=== PATIENT | female | born 1945 | race American Indian/Alaskan Native ===

== ENCOUNTER 2017-10-03 18:36 | Emergency (ER) | payer MEDICARE ==
[2017-10-03 22:19] LABS: Basophils # (Auto) 0.1 K/mm3 (0.0-0.1); Basophils % (Auto) 0.8 % (0.0-1.8); Eosinophils # (Auto) 0.2 K/mm3 (0.0-0.4); Eosinophils % (Auto) 1.7 % (0.0-4.3); Hematocrit 41.8 % (30.3-42.9); Hemoglobin 13.9 gm/dl (10.1-14.3); Lymphocytes % (Auto) 33.2 % (13.4-35.0); Mean Corpuscular HGB Conc 33 % (30-34); Mean Corpuscular Hemoglobin 29 pg (28-32); Mean Corpuscular Volume 87 fl (79-97); Monocytes # (Auto) 0.6 K/mm3 (0.0-0.8); Monocytes % (Auto) 7.1 % (0.0-7.3); Platelet Count 344 K/mm3 (140-440); Red Blood Count 4.83 M/mm3 (3.65-5.03); Red Cell Distribution Width 14.8 % (13.2-15.2)
[2017-10-03 22:43] LABS: Alanine Aminotransferase 16 units/L (7-56); Albumin 4.3 g/dL (3.9-5); BUN/Creatinine Ratio 26; Blood Urea Nitrogen 13 mg/dL (7-17); Calcium 9.5 mg/dL (8.4-10.2); Hemolysis Index 28; Lipase 34 units/L (13-60)
[2017-10-04] MEDS ORDERED: NORCO 5/325 PO ONE (06:30)
--- NOTE | 2017-10-04 06:43 | Emergency Department Report ---
ED Abdominal Pain HPI - General Chief Complaint: Abdominal Pain Stated Complaint: ABDOMINAL PAIN Time Seen by Provider: 10/04/17 06:13 Source: patient Mode of arrival: Ambulatory Limitations: No Limitations - History of Present Illness Initial Comments: Mrs. Moreno is a 72-year-old female with history of insulin-dependent diabetes and COPD who has had multiple abdominal surgeries including hysterectomy appendectomy cholecystectomy 2 hernia surgeries. She has had several months of right upper quadrant abdominal pain. Worse over the last 2 weeks. She has cramping pain. "Feels like a knot" Worse with eating. Copious diarrhea with mucus. 's concern for Crohn's disease. Symptoms are worse at night. MD Complaint: abdominal pain -: month(s) Location: RUQ Radiation: none Migration to: no migration Severity: moderate Severity scale (0 -10): 7 Quality: cramping, other ("feels like a knot") Consistency: intermittent Improves With: nothing Worsens With: eating Associated Symptoms: diarrhea - Related Data Home Medications Medication Instructions Recorded Confirmed Last Taken Insulin Glargine [Lantus VIAL] 15 unit SUB-Q QHS 12/09/15 05/02/17 2 Weeks Ago ~04/18/17 Previous Rx's Medication Instructions Recorded Last Taken Type Insulin Aspart [NovoLOG 100 5 units SUB-Q TID #60 units 12/18/15 04/28/17 Rx UNITS/ML VIAL] Insulin Glargine [Lantus VIAL] 10 units SUB-Q QHS #30 units 12/18/15 1 Week Ago Rx ~04/25/17 Warfarin [Coumadin] 2.5 mg PO QDAY #30 tablet 12/18/15 04/28/17 Rx 11.5 mg ALBUTEROL Inhaler [ProAir HFA 2 puff IH QID PRN #1 can 05/10/17 Unknown Rx Inhaler] Arformoterol Nebu [Brovana Nebu] 15 mcg IH Q12HRT #60 ml 05/10/17 Unknown Rx Codeine Phosphate/Guaifenesin 5 ml PO QID PRN #1 bottle 05/10/17 Unknown Rx [Guaifen-Codeine 100-10 mg/5 ml] Diabetic Supplies,Miscell [Enlite 1 each MC BID #1 miscell 05/10/17 Unknown Rx Serter] Levofloxacin [Levaquin TAB] 500 mg PO Q24H #5 tablet 05/10/17 Unknown Rx Prednisone [predniSONE 10 mg 10 mg PO .TAPER #1 tab.ds.pk 05/10/17 Unknown Rx (6-Day Pack, 21 Tabs)] amLODIPine [Norvasc] 10 mg PO DAILY #30 tablet 05/10/17 Unknown Rx Allergies Allergy/AdvReac Type Severity Reaction Status Date / Time aspirin Allergy Rash Verified 10/28/15 16:10 sumatriptan [From Imitrex] Allergy Rash Verified 10/28/15 16:11 vancomycin Allergy Rash Verified 10/28/15 16:12 ibuprofen [From Motrin] AdvReac Itching Verified 10/28/15 16:13 sumatriptan succinate AdvReac Rash Verified 04/24/14 07:59 [From Imitrex] zolpidem [From Ambien] AdvReac Unknown Verified 04/29/17 21:55 ED Review of Systems ROS: Stated complaint: ABDOMINAL PAIN Other details as noted in HPI Comment: All other systems reviewed and negative Constitutional: denies: fever, malaise Respiratory: orthopnea. denies: cough Cardiovascular: denies: chest pain, palpitations ED Past Medical Hx - Past Medical History Previous Medical History?: Yes Hx Hypertension: Yes Hx Heart Attack/AMI: No Hx Congestive Heart Failure: No Hx Diabetes: Yes Hx Deep Vein Thrombosis: No Hx Pulmonary Embolism: No Hx Liver Disease: No Hx Arthritis: No Hx Asthma: Yes Hx COPD: Yes Hx Tuberculosis: No Hx HIV: No - Surgical History Past Surgical History?: Yes Hx Coronary Stent: No Hx Pacemaker: No Hx Internal Defibrillator: No Hx Cholecystectomy: Yes Additional Surgical History: Hernia, shoulder, knee, stent placement. - Social History Smoking Status: Former Smoker - Medications Home Medications: Home Medications Medication Instructions Recorded Confirmed Last Taken Type Insulin Glargine [Lantus VIAL] 15 unit SUB-Q QHS 12/09/15 05/02/17 2 Weeks Ago History ~04/18/17 Insulin Aspart [NovoLOG 100 5 units SUB-Q TID #60 units 12/18/15 05/02/17 Rx UNITS/ML VIAL] Insulin Glargine [Lantus VIAL] 10 units SUB-Q QHS #30 units 12/18/15 05/02/17 1 Week Ago Rx ~04/25/17 Warfarin [Coumadin] 2.5 mg PO QDAY #30 tablet 12/18/15 05/02/17 04/28/17 Rx 11.5 mg ALBUTEROL Inhaler [ProAir HFA 2 puff IH QID PRN #1 can 05/10/17 Unknown Rx Inhaler] Arformoterol Nebu [Brovana Nebu] 15 mcg IH Q12HRT #60 ml 05/10/17 Unknown Rx Codeine Phosphate/Guaifenesin 5 ml PO QID PRN #1 bottle 05/10/17 Unknown Rx [Guaifen-Codeine 100-10 mg/5 ml] Diabetic Supplies,Miscell [Enlite 1 each MC BID #1 miscell 05/10/17 Unknown Rx Serter] Levofloxacin [Levaquin TAB] 500 mg PO Q24H #5 tablet 05/10/17 Unknown Rx Prednisone [predniSONE 10 mg 10 mg PO .TAPER #1 tab.ds.pk 05/10/17 Unknown Rx (6-Day Pack, 21 Tabs)] amLODIPine [Norvasc] 10 mg PO DAILY #30 tablet 05/10/17 Unknown Rx ED Physical Exam - General Limitations: No Limitations General appearance: alert, in no apparent distress - Head Head exam: Present: atraumatic, normocephalic - Eye Eye exam: Present: normal appearance - ENT ENT exam: Present: mucous membranes moist - Neck Neck exam: Present: normal inspection - Respiratory Respiratory exam: Present: normal lung sounds bilaterally. Absent: respiratory distress, wheezes, rales, rhonchi - Cardiovascular Cardiovascular Exam: Present: regular rate, normal rhythm, normal heart sounds. Absent: systolic murmur, diastolic murmur, rubs, gallop - GI/Abdominal GI/Abdominal exam: Present: soft, normal bowel sounds, other (long central vertical surgical incisional scar). Absent: distended, tenderness, guarding, rebound - Extremities Exam Extremities exam: Present: normal inspection - Back Exam Back exam: Present: normal inspection - Neurological Exam Neurological exam: Present: alert, oriented X3 - Psychiatric Psychiatric exam: Present: normal affect, normal mood - Skin Skin exam: Present: warm, dry, intact, normal color. Absent: rash ED Course Vital Signs 10/03/17 10/04/17 10/04/17 19:00 02:00 06:27 Temperature 98.4 F Pulse Rate 82 67 Respiratory 96 H 17 Rate Blood Pressure 119/70 Blood Pressure 138/51 [Left] O2 Sat by Pulse 96 95 99 Oximetry ED Medical Decision Making - Lab Data Result diagrams: 10/03/17 22:05 10/03/17 22:05 - Medical Decision Making Differential diagnoses includes small bowel obstruction, pain due to adhesions, tumor, IBS, gastroparesis, hernia No evidence of small bowel obstruction. She'll need outpatient follow-up with her PCP. recommended tylenol PRN for pain Critical care attestation.: If time is entered above; I have spent that time in minutes in the direct care of this critically ill patient, excluding procedure time. ED Disposition Clinical Impression: Abdominal pain Disposition: DC-01 TO HOME OR SELFCARE Is pt being admited?: No Does the pt Need Aspirin: No Condition: Stable Instructions: Abdominal Pain (ED) Additional Instructions: Please see your doctor this week. You need to see a GI specialist. Time of Disposition: 10:33
[2017-10-04] MEDS ORDERED: NACL ONE (07:03)
--- NOTE | 2017-10-04 08:04 | Cat Scan Report ---
CT ABDOMEN PELVIS WITHOUT CONTRAST: HISTORY: Right upper quadrant abdominal pain. COMPARISON: 04/24/14. TECHNIQUE: Helical CT in 1.25mm intervals without IV contrast. Sagittal and coronal reconstructions. FINDINGS: Lung bases: Normal heart size. There is mild segmental atelectasis or scarring in both lower lobes. Liver: The liver is mildly enlarged with a few scattered liver cysts. No surface nodularity or obvious mass on noncontrast CT. Biliary system: Cholecystectomy. No biliary dilatation is appreciated. Pancreas: Normal. Spleen: Normal. Kidneys/ureters/bladder: Normal. Adrenal glands: Normal. Aorta: Mild diffuse aortic calcifications. Left common iliac stent is in place. Intestines: Unremarkable given no oral contrast was administered. Mild sigmoid diverticulosis is noted. Appendix: Not identified. Pelvic viscera: Hysterectomy is suspected. No adnexal cyst or mass. Ascites: None. Adenopathy: None. Musculoskeletal: Moderate to severe rectal lumbar spondylosis. No fracture or suspicious bony lesion. IMPRESSION: No acute abdominal process is identified. Chronic findings as outlined above.
[2017-10-04] MEDS ORDERED: MORPHINE IM ONE (08:59)
[2017-10-04] MEDS ORDERED: ZOFRAN ODT PO ONE (08:59)
[2017-10-04] MEDS ORDERED: ALUM-MAG HYDROX-SIMETH 200-200-20MG/5ML PO ONE (09:01)
[2017-10-04 11:51] VITALS: BP 139/63
== END 2017-10-04 11:00 | disposition home or self-care (01) ==
LOC: ED 18:36
DX: R10.11 Right upper quadrant pain (principal); R19.7 Diarrhea, unspecified; I10 Essential (primary) hypertension; E11.9 Type 2 diabetes mellitus without complications; J44.9 Chronic obstructive pulmonary disease, unspecified; Z90.49 Acquired absence of other specified parts of digestive tract; Z87.891 Personal history of nicotine dependence; Z95.818 Presence of other cardiac implants and grafts; Z88.8 Allergy status to other drugs, medicaments and biological substances; Z88.6 Allergy status to analgesic agent; Z88.1 Allergy status to other antibiotic agents
CPT/HCPCS: 36415; 74176; 80053; 83690; 85025; 96372; 99284; J2270; Q0162

== ENCOUNTER 2019-08-03 12:26 | Emergency (ER) | payer MEDICARE | END 2019-08-03 13:30 | disposition left against medical advice (07) | LOC: ED 12:26 | DX: R51 Headache (principal); Z53.21 Procedure and treatment not carried out due to patient leaving prior to being seen by health care provider ==

== ENCOUNTER 2019-11-13 09:19 | Emergency (ER) | payer MEDICARE ==
--- NOTE | 2019-11-13 09:53 | Emergency Department Report ---
- General Chief Complaint: Upper Respiratory Infection Stated Complaint: COUGH/MERLYN Time Seen by Provider: 11/13/19 09:41 Source: patient, EMS Mode of arrival: Stretcher Limitations: No Limitations - History of Present Illness Initial Comments: 74-year-old female with history of COPD, on 2 L O2 at home, presents to ED for cough x3 days. Patient states she normally has chronic cough due to COPD, but states it has been worse over the last 3 days, triggering her COPD and shortness of breath. Patient states that she has not had to increase her oxygen requirement. Patient reports cough is productive of white sputum. She reports sharp chest pain in the center of her chest associated with the cough. Patient denies diaphoresis, nausea or vomiting. Patient denies fever, body aches, vomiting or diarrhea, loss of smell or taste, sick contacts, exposure to anyone that has tested positive for COVID-19. Patient was given Solu-Medrol and albuterol nebulizer by EMS. MD Complaint: cough -: days(s) (3) Severity: moderate Quality: sharp Consistency: constant Improves With: nothing Worsens With: nothing Associated Symptoms: cough, chest pain (with cough) Treatments Prior to Arrival: other (albuterol nebs, solumedrol) - Related Data Home Medications Medication Instructions Recorded Confirmed Last Taken Insulin Glargine [Lantus VIAL] 15 unit SUB-Q QHS 12/09/15 05/02/17 2 Weeks Ago ~04/18/17 Previous Rx's Medication Instructions Recorded Last Taken Type Insulin Aspart (Nf) [NovoLOG 100 5 units SUB-Q TID #60 units 12/18/15 04/28/17 Rx UNITS/ML VIAL] Insulin Glargine [Lantus VIAL] 10 units SUB-Q QHS #30 units 12/18/15 1 Week Ago Rx ~04/25/17 Warfarin [Coumadin] 2.5 mg PO QDAY #30 tablet 12/18/15 04/28/17 Rx 11.5 mg Albuterol INH(or & Nicu Only) 2 puff IH QID PRN #1 can 05/10/17 Unknown Rx [ProAir HFA Inhaler] Arformoterol Nebu [Brovana Nebu] 15 mcg IH Q12HRT #60 ml 05/10/17 Unknown Rx Codeine Phosphate/Guaifenesin 5 ml PO QID PRN #1 bottle 05/10/17 Unknown Rx [Guaifen-Codeine 100-10 mg/5 ml] Diabetic Supplies,Miscell [Enlite 1 each MC BID #1 miscell 05/10/17 Unknown Rx Serter] Prednisone [predniSONE 10 mg 10 mg PO .TAPER #1 tab.ds.pk 05/10/17 Unknown Rx (6-Day Pack, 21 Tabs)] amLODIPine 10 mg PO DAILY #30 tablet 05/10/17 Unknown Rx levoFLOXacin [Levaquin TAB] 500 mg PO Q24H #5 tablet 05/10/17 Unknown Rx traMADoL [Ultram] 50 mg PO Q6HR PRN #14 tablet 05/05/18 Unknown Rx Albuterol Sulfate [Proventil Hfa] 2 puff IH Q4HR PRN #1 hfa.aer.ad 11/13/19 Unknown Rx Benzonatate [Tessalon Perles] 100 mg PO Q8HR PRN #20 capsule 11/13/19 Unknown Rx predniSONE [Deltasone] 50 mg PO QDAY #5 tab 11/13/19 Unknown Rx Allergies Allergy/AdvReac Type Severity Reaction Status Date / Time aspirin Allergy Rash Verified 08/03/19 12:28 sumatriptan [From Imitrex] Allergy Rash Verified 08/03/19 12:28 vancomycin Allergy Rash Verified 08/03/19 12:28 ibuprofen [From Motrin] AdvReac Itching Verified 08/03/19 12:28 sumatriptan succinate AdvReac Rash Verified 08/03/19 12:28 [From Imitrex] zolpidem [From Ambien] AdvReac Unknown Verified 08/03/19 12:28 ED Review of Systems ROS: Stated complaint: COUGH/MERLYN Other details as noted in HPI Comment: All other systems reviewed and negative Constitutional: denies: chills, fever Respiratory: cough, shortness of breath, wheezing Cardiovascular: chest pain (with cough) Gastrointestinal: denies: vomiting, constipation ED Past Medical Hx - Past Medical History Previous Medical History?: Yes Hx Hypertension: Yes Hx Heart Attack/AMI: No Hx Congestive Heart Failure: No Hx Diabetes: Yes Hx Deep Vein Thrombosis: No Hx Pulmonary Embolism: No Hx Liver Disease: No Hx Arthritis: No Hx Asthma: Yes Hx COPD: Yes Hx Tuberculosis: No Hx HIV: No - Surgical History Hx Coronary Stent: No Hx Pacemaker: No Hx Internal Defibrillator: No Hx Cholecystectomy: Yes Additional Surgical History: Hernia, shoulder, knee, stent placement. - Social History Smoking Status: Unknown if ever smoked Substance Use Type: None - Medications Home Medications: Home Medications Medication Instructions Recorded Confirmed Last Taken Type Insulin Glargine [Lantus VIAL] 15 unit SUB-Q QHS 12/09/15 05/02/17 2 Weeks Ago History ~04/18/17 Insulin Aspart (Nf) [NovoLOG 100 5 units SUB-Q TID #60 units 12/18/15 05/02/17 04/28/17 Rx UNITS/ML VIAL] Insulin Glargine [Lantus VIAL] 10 units SUB-Q QHS #30 units 12/18/15 05/02/17 1 Week Ago Rx ~04/25/17 Warfarin [Coumadin] 2.5 mg PO QDAY #30 tablet 12/18/15 05/02/17 04/28/17 Rx 11.5 mg Albuterol INH(or & Nicu Only) 2 puff IH QID PRN #1 can 05/10/17 Unknown Rx [ProAir HFA Inhaler] Arformoterol Nebu [Brovana Nebu] 15 mcg IH Q12HRT #60 ml 05/10/17 Unknown Rx Codeine Phosphate/Guaifenesin 5 ml PO QID PRN #1 bottle 05/10/17 Unknown Rx [Guaifen-Codeine 100-10 mg/5 ml] Diabetic Supplies,Miscell [Enlite 1 each MC BID #1 miscell 05/10/17 Unknown Rx Serter] Prednisone [predniSONE 10 mg 10 mg PO .TAPER #1 tab.ds.pk 05/10/17 Unknown Rx (6-Day Pack, 21 Tabs)] amLODIPine 10 mg PO DAILY #30 tablet 05/10/17 Unknown Rx levoFLOXacin [Levaquin TAB] 500 mg PO Q24H #5 tablet 05/10/17 Unknown Rx traMADoL [Ultram] 50 mg PO Q6HR PRN #14 tablet 05/05/18 Unknown Rx Albuterol Sulfate [Proventil Hfa] 2 puff IH Q4HR PRN #1 hfa.aer.ad 11/13/19 Unknown Rx Benzonatate [Tessalon Perles] 100 mg PO Q8HR PRN #20 capsule 11/13/19 Unknown Rx predniSONE [Deltasone] 50 mg PO QDAY #5 tab 11/13/19 Unknown Rx ED Physical Exam - General Limitations: No Limitations General appearance: alert, in no apparent distress - Head Head exam: Present: atraumatic, normocephalic - Eye Eye exam: Present: normal appearance, EOMI - ENT ENT exam: Present: mucous membranes moist - Neck Neck exam: Present: normal inspection - Respiratory Respiratory exam: Present: wheezes (faint). Absent: respiratory distress - Cardiovascular Cardiovascular Exam: Present: regular rate, normal rhythm - GI/Abdominal GI/Abdominal exam: Present: soft. Absent: distended, tenderness - Extremities Exam Extremities exam: Present: normal inspection - Neurological Exam Neurological exam: Present: alert, oriented X3 - Psychiatric Psychiatric exam: Present: normal affect, normal mood - Skin Skin exam: Present: warm, dry, intact, normal color ED Course Vital Signs 11/13/19 11/13/19 11/13/19 09:30 09:34 10:00 Temperature Pulse Rate 97 H 83 Respiratory 18 29 H 22 Rate Blood Pressure 137/69 141/62 O2 Sat by Pulse 99 97 95 Oximetry 11/13/19 11/13/19 10:30 10:52 Temperature 98.6 F Pulse Rate 83 60 Respiratory 35 H Rate Blood Pressure 123/63 O2 Sat by Pulse 97 Oximetry ED Medical Decision Making - Lab Data Result diagrams: 11/13/19 10:48 11/13/19 09:55 - EKG Data -: EKG Interpreted by [facility] EKG shows normal: sinus rhythm, axis, intervals, QRS complexes, ST-T waves Rate: normal - EKG Data Interpretation: no acute changes - Radiology Data Radiology results: report reviewed, image reviewed - Medical Decision Making - low suspicion for COVID infection given symptoms and exam findings - O2 normal; pt afebrile - CXR negative - pt feeling much better at this time; feels ready for discharge home - outpt f/u advised, return precautions given - Differential Diagnosis COPD exacerbation, pneumonia, pulm edema Critical care attestation.: If time is entered above; I have spent that time in minutes in the direct care of this critically ill patient, excluding procedure time. ED Disposition Clinical Impression: COPD exacerbation Disposition: DC-01 TO HOME OR SELFCARE Is pt being admited?: No Condition: Stable Instructions: Chronic Bronchitis (ED) Prescriptions: predniSONE [Deltasone] 50 mg PO QDAY #5 tab Albuterol Sulfate [Proventil Hfa] 2 puff IH Q4HR PRN #1 hfa.aer.ad PRN Reason: Wheezing Benzonatate [Tessalon Perles] 100 mg PO Q8HR PRN #20 capsule PRN Reason: Cough Referrals: PRIMARY CARE, [Primary Care Provider] - 3-5 Days [facility] [Provider Group] - 3-5 Days Time of Disposition: 11:19
--- NOTE | 2019-11-13 10:03 | XRay Report ---
CHEST 1 VIEW 11/13/2019 8:57 AM INDICATION / CLINICAL INFORMATION: Chest Pain. COMPARISON: Chest x-ray on 05/04/2017. FINDINGS: SUPPORT DEVICES: None. HEART / MEDIASTINUM: Normal heart size. Atherosclerosis in the thoracic aorta. LUNGS / PLEURA: No acute findings. Stable mild linear scarring in the left midlung. No pneumothorax. ADDITIONAL FINDINGS: No significant additional findings. IMPRESSION: 1. No acute findings. Signer Name: Christiano Howard MD Signed: 11/13/2019 9:59 AM Workstation Name: [id number]
[2019-11-13 10:37] LABS: BUN/Creatinine Ratio 32; Blood Urea Nitrogen 19 mg/dL (7-17); Calcium 9.7 mg/dL (8.4-10.2); Hemolysis Index 23
[2019-11-13 11:02] LABS: Basophils % (Auto) 0.5 % (0.0-1.8); Eosinophils # (Auto) 0.2 K/mm3 (0.0-0.4); Hematocrit 37.1 % (30.3-42.9); Hemoglobin 12.2 gm/dl (10.1-14.3); Lymphocytes # (Auto) 1.7 K/mm3 (1.2-5.4); Lymphocytes % (Auto) 19.3 % (13.4-35.0); Mean Corpuscular HGB Conc 33 % (30-34); Mean Corpuscular Volume 92 fl (79-97); Monocytes # (Auto) 0.3 K/mm3 (0.0-0.8); Monocytes % (Auto) 3.4 % (0.0-7.3); Platelet Count 303 K/mm3 (140-440); Red Blood Count 4.05 M/mm3 (3.65-5.03); Red Cell Distribution Width 14.5 % (13.2-15.2)
[2019-11-14 13:19] VITALS: BP 123/63
== END 2019-11-13 11:42 | disposition home or self-care (01) ==
LOC: ED 09:19
DX: J44.1 Chronic obstructive pulmonary disease with (acute) exacerbation (principal); I10 Essential (primary) hypertension; E11.9 Type 2 diabetes mellitus without complications; Z98.890 Other specified postprocedural states; Z79.82 Long term (current) use of aspirin; Z79.1 Long term (current) use of non-steroidal anti-inflammatories (NSAID); Z79.899 Other long term (current) drug therapy; Z88.6 Allergy status to analgesic agent; Z88.8 Allergy status to other drugs, medicaments and biological substances
CPT/HCPCS: 36415; 71045; 80048; 84484; 85025; 93005

== ENCOUNTER 2021-09-29 17:23 | Emergency (ER) | payer MEDICARE ==
[2021-09-29] MEDS ORDERED: ACETAMINOPHEN 325 MG TAB PO ONE (18:13)
[2021-09-29] MEDS ORDERED: ALBUTEROL 2.5 MG/3 ML NEBU IH ONE (18:13)
--- NOTE | 2021-09-29 18:15 | Emergency Department Report ---
ED General Adult HPI - General Chief complaint: Dyspnea/Respdistress Stated complaint: CHEST PAIN/COUGH PUI?: No Time Seen by Provider: 09/29/21 18:00 Source: patient, RN notes reviewed, old records reviewed Mode of arrival: Ambulatory Limitations: No Limitations - History of Present Illness Initial comments: The patient is a 76-year-old female. She presents to the ER today with a complaint of 1 week of chest wall pain associated with cough, malaise. She also has body aches. She is COVID-19 vaccinated. She also reports a history of left lower extremity DVT, and reportedly takes Coumadin. She reports the DVT is a provoked DVT, which came from being in a hospital 7 years ago. She reports this is her only lifetime DVT. For unclear reasons, she is still on anticoagulation. She has taken gabapentin at home for pain, but otherwise, has not taken pain medication. She currently denies headache, neck pain, vomiting, diaphoresis and new/different exertional shortness of breath. Denies travel, surgery, immobilization, leg pain or leg swelling. Reports compliance with medicines. Saw her outpatient mock up builder at [place], who recently prescribed a [employer] as well as steroids. She also takes albuterol at home as needed. She has not taken Tylenol or Motrin for pain. She reports intolerance to NSAIDs secondary to GI upset. -: days(s) Location: chest Severity scale (0 -10): 10 Quality: aching Consistency: constant Improves with: rest Worsens with: other (Coughing, movement, palpation) - Related Data Home Medications Medication Instructions Recorded Confirmed Last Taken Insulin Glargine [Lantus VIAL] 15 unit SUB-Q QHS 12/09/15 05/02/17 2 Weeks Ago ~04/18/17 Previous Rx's Medication Instructions Recorded Last Taken Type Insulin Aspart (Nf) [NovoLOG 100 5 units SUB-Q TID #60 units 12/18/15 04/28/17 Rx UNITS/ML VIAL] Insulin Glargine [Lantus VIAL] 10 units SUB-Q QHS #30 units 12/18/15 1 Week Ago Rx ~04/25/17 Warfarin [Coumadin] 2.5 mg PO QDAY #30 tablet 12/18/15 04/28/17 Rx 11.5 mg Albuterol Mdi (or & Nicu Only) 2 puff IH QID PRN #1 can 05/10/17 Unknown Rx [ProAir HFA Inhaler] Arformoterol Nebu [Brovana Nebu] 15 mcg IH Q12HRT #60 ml 05/10/17 Unknown Rx Diabetic Supplies,Miscell [Enlite 1 each MC BID #1 miscell 05/10/17 Unknown Rx Serter] Prednisone [predniSONE 10 mg 10 mg PO .TAPER #1 tab.ds.pk 05/10/17 Unknown Rx (6-Day Pack, 21 Tabs)] amLODIPine 10 mg PO DAILY #30 tablet 05/10/17 Unknown Rx levoFLOXacin [Levaquin TAB] 500 mg PO Q24H #5 tablet 05/10/17 Unknown Rx Albuterol Sulfate [Proventil Hfa] 2 puff IH Q4HR PRN #1 hfa.aer.ad 11/13/19 Unknown Rx Benzonatate [Tessalon Perles] 100 mg PO Q8HR PRN #20 capsule 11/13/19 Unknown Rx predniSONE [Deltasone] 50 mg PO QDAY #5 tab 11/13/19 Unknown Rx Acetaminophen [Non-Aspirin Extra 500 mg PO Q6HR PRN #30 tablet 09/29/21 Unknown Rx Strength] Albuterol Sulfate [Albuterol 0.63% 0.63 mg IH Q4HR PRN #2 ml 09/29/21 Unknown Rx NEBS] Albuterol Sulfate [Proair 90 mcg IH Q4HR PRN #2 aer.pow.ba 09/29/21 Unknown Rx Respiclick] Ipratropium (Nf) [Atrovent] 2 puff IH Q6HR PRN #1 inha 09/29/21 Unknown Rx Allergies Allergy/AdvReac Type Severity Reaction Status Date / Time aspirin Allergy Rash Verified 08/03/19 12:28 sumatriptan [From Imitrex] Allergy Rash Verified 08/03/19 12:28 vancomycin Allergy Rash Verified 08/03/19 12:28 ibuprofen [From Motrin] AdvReac Itching Verified 08/03/19 12:28 sumatriptan succinate AdvReac Rash Verified 08/03/19 12:28 [From Imitrex] zolpidem [From Ambien] AdvReac Unknown Verified 08/03/19 12:28 ED Review of Systems ROS: Stated complaint: CHEST PAIN/COUGH Other details as noted in HPI Constitutional: malaise. denies: fever ENT: congestion Respiratory: cough Cardiovascular: chest pain Gastrointestinal: denies: abdominal pain Musculoskeletal: arthralgia, myalgia Neurological: denies: weakness Hematological/Lymphatic: denies: easy bleeding ED Past Medical Hx - Past Medical History Hx Hypertension: Yes Hx Heart Attack/AMI: No Hx Congestive Heart Failure: No Hx Diabetes: Yes Hx Deep Vein Thrombosis: No Hx Pulmonary Embolism: No Hx Liver Disease: No Hx Arthritis: Yes Hx Asthma: Yes Hx COPD: Yes Hx Tuberculosis: No Hx HIV: No - Surgical History Hx Coronary Stent: No Hx Pacemaker: No Hx Internal Defibrillator: No Hx Cholecystectomy: Yes Additional Surgical History: Hernia, shoulder, knee, stent placement. - Social History Smoking Status: Unknown if ever smoked Substance Use Type: None - Medications Home Medications: Home Medications Medication Instructions Recorded Confirmed Last Taken Type Insulin Glargine [Lantus VIAL] 15 unit SUB-Q QHS 12/09/15 05/02/17 2 Weeks Ago History ~04/18/17 Insulin Aspart (Nf) [NovoLOG 100 5 units SUB-Q TID #60 units 12/18/15 05/02/17 04/28/17 Rx UNITS/ML VIAL] Insulin Glargine [Lantus VIAL] 10 units SUB-Q QHS #30 units 12/18/15 05/02/17 1 Week Ago Rx ~04/25/17 Warfarin [Coumadin] 2.5 mg PO QDAY #30 tablet 12/18/15 05/02/17 04/28/17 Rx 11.5 mg Albuterol Mdi (or & Nicu Only) 2 puff IH QID PRN #1 can 05/10/17 Unknown Rx [ProAir HFA Inhaler] Arformoterol Nebu [Brovana Nebu] 15 mcg IH Q12HRT #60 ml 05/10/17 Unknown Rx Diabetic Supplies,Miscell [Enlite 1 each MC BID #1 miscell 05/10/17 Unknown Rx Serter] Prednisone [predniSONE 10 mg 10 mg PO .TAPER #1 tab.ds.pk 05/10/17 Unknown Rx (6-Day Pack, 21 Tabs)] amLODIPine 10 mg PO DAILY #30 tablet 05/10/17 Unknown Rx levoFLOXacin [Levaquin TAB] 500 mg PO Q24H #5 tablet 05/10/17 Unknown Rx Albuterol Sulfate [Proventil Hfa] 2 puff IH Q4HR PRN #1 hfa.aer.ad 11/13/19 Unknown Rx Benzonatate [Tessalon Perles] 100 mg PO Q8HR PRN #20 capsule 11/13/19 Unknown Rx predniSONE [Deltasone] 50 mg PO QDAY #5 tab 11/13/19 Unknown Rx Acetaminophen [Non-Aspirin Extra 500 mg PO Q6HR PRN #30 tablet 09/29/21 Unknown Rx Strength] Albuterol Sulfate [Albuterol 0.63% 0.63 mg IH Q4HR PRN #2 ml 09/29/21 Unknown Rx NEBS] Albuterol Sulfate [Proair 90 mcg IH Q4HR PRN #2 aer.pow.ba 09/29/21 Unknown Rx Respiclick] Ipratropium (Nf) [Atrovent] 2 puff IH Q6HR PRN #1 inha 09/29/21 Unknown Rx ED Physical Exam - General Limitations: No Limitations General appearance: alert, in no apparent distress - Head Head exam: Present: atraumatic, normocephalic - Eye Eye exam: Present: normal appearance, EOMI. Absent: nystagmus - ENT ENT exam: Present: normal exam, normal orophraynx, mucous membranes moist, normal external ear exam - Neck Neck exam: Present: normal inspection, full ROM. Absent: tenderness, meningismus - Respiratory Respiratory exam: Present: normal lung sounds bilaterally, chest wall tenderness, other (Chaperoned by sales and marketing associate Cristela). Absent: respiratory distress, wheezes, rales, rhonchi, stridor - Cardiovascular Cardiovascular Exam: Present: regular rate, normal rhythm, normal heart sounds. Absent: bradycardia, tachycardia, irregular rhythm, systolic murmur, diastolic murmur, rubs, gallop - GI/Abdominal GI/Abdominal exam: Present: soft. Absent: distended, tenderness, guarding, rebound, rigid, pulsatile mass - Extremities Exam Extremities exam: Present: normal inspection, full ROM, other (2+ pulses noted in the bilateral upper and lower extremities. There is no palpable cord. negative Homans sign. Muscular compartments are soft. The pelvis is stable.). Absent: pedal edema, calf tenderness - Back Exam Back exam: Present: normal inspection. Absent: tenderness, CVA tenderness (R), CVA tenderness (L), paraspinal tenderness, vertebral tenderness - Neurological Exam Neurological exam: Present: alert, oriented X3, other (No facial droop. Tongue midline. Extraocular movements intact bilaterally. Facial sensation intact to light touch in V1, V2, V3 distribution bilaterally. 5 and a 5 strength in 4 extremities. Sensation intact to light touch in 4 extremities.). Absent: motor sensory deficit - Psychiatric Psychiatric exam: Present: anxious - Skin Skin exam: Present: warm, dry, intact, normal color. Absent: rash ED Course Vital Signs 09/29/21 09/29/21 17:25 18:43 Temperature 98.7 F Pulse Rate 89 Pulse Rate [ 80 Anterior Bilateral Throughout] Respiratory 22 Rate Respiratory 20 Rate [Anterior Bilateral Throughout] Blood Pressure 159/67 [Right] O2 Sat by Pulse 97 Oximetry - Reevaluation(s) Reevaluation #1: 09/29/21 19:34 Differential diagnosis, including the not limited to: Bronchitis, costochondritis, pulmonary embolism, coronary artery disease, pneumonia Assessment and plan: 76 elderly female, who is not currently tachycardic, tachypneic or hypoxic, with 1 week of cough and chest wall pain, likely costochondritis with bronchitis. Chest x-ray clear. Lung sounds unremarkable. Troponin negative x1, symptoms present for 1 week. As per the [employer] clinical policy, myocardial infarction is ruled out with 1 set of troponin/cardiac enzymes. Patient endorsed to myself that she takes Coumadin/warfarin. Her INR is subtherapeutic. Albuterol and Tylenol ordered. D-dimer ordered. Reassess after initial data points. Patient's advanced age and cardiovascular risk factor profile are reviewed and appreciated. However, given unchanged EKG, reproducible chest wall pain, negative troponin x1, and overall clinical history, suspect bronchitis with superimposed costochondritis, rather than atypical presentation of acute cor onary syndrome. 09/29/21 20:05 Patient is reassessed. She feels improved. Troponin negative. D-dimer negative. INR reviewed and appreciated. Given that patient has one lifetime DVT 7 years ago, provoked, hospitalization, it might be reasonable to discontinue her Coumadin. I advised the patient to closely follow-up with her outpatient primary care doctor or mock up builder, to make that determination. Patient advised as to her test results, and she endorsed understanding. She endorsed improvement in her symptoms and readiness for discharge. Extensive discussion had with patient and regarding natural history of bronchitis and costochondritis. They articulated understanding. All questions answered. Return precautions are reviewed. ED Medical Decision Making - Lab Data Result diagrams: 09/29/21 18:20 09/29/21 18:20 Vital Signs 09/29/21 09/29/21 17:25 18:43 Temperature 98.7 F Pulse Rate 89 Pulse Rate [ 80 Anterior Bilateral Throughout] Respiratory 22 Rate Respiratory 20 Rate [Anterior Bilateral Throughout] Blood Pressure 159/67 [Right] O2 Sat by Pulse 97 Oximetry Lab Results 09/29/21 09/29/21 Range/Units 18:20 18:20 WBC 8.2 (4.5-11.0) K/mm3 RBC 4.63 (3.65-5.03) M/mm3 Hgb 13.1 (10.1-14.3) gm/dl Hct 41.1 (30.3-42.9) % MCV 89 (79-97) fl MCH 28 (28-32) pg MCHC 32 (30-34) % RDW 16.9 H (13.2-15.2) % Plt Count 349 (140-440) K/mm3 PT 12.0 L (12.2-14.9) Sec. INR 0.81 L (0.87-1.13) Lab Results 09/29/21 09/29/21 09/29/21 Range/Units 18:20 18:20 18:20 WBC 8.2 (4.5-11.0) K/mm3 RBC 4.63 (3.65-5.03) M/mm3 Hgb 13.1 (10.1-14.3) gm/dl Hct 41.1 (30.3-42.9) % MCV 89 (79-97) fl MCH 28 (28-32) pg MCHC 32 (30-34) % RDW 16.9 H (13.2-15.2) % Plt Count 349 (140-440) K/mm3 PT 12.0 L (12.2-14.9) Sec. INR 0.81 L (0.87-1.13) Sodium 142 (137-145) mmol/L Potassium 4.2 (3.6-5.0) mmol/L Chloride 104.2 (98-107) mmol/L Carbon Dioxide 22 (22-30) mmol/L Anion Gap 20 mmol/L BUN 15 (7-17) mg/dL Glucose 334 H (65-100) mg/dL Calcium 10.0 (8.4-10.2) mg/dL Magnesium 2.10 (1.7-2.3) mg/dL Total Creatine Kinase 171 H (30-135) units/L Troponin T < 0.010 (0.00-0.029) ng/mL - EKG Data -: EKG Interpreted by Me EKG shows normal: sinus rhythm Rate: normal - EKG Data 09/29/21 19:34 The EKG is interpreted at 17: 39 Sinus rhythm, 90 bpm. Normal axis, normal P wave axis, QTC 4 4 8 ms. Motion artifact. Abnormal EKG. Not a STEMI. Unchanged from prior EKG from November 2019 - Radiology Data Radiology results: pending, report reviewed, image reviewed CHEST PA AND LATERAL VIEWS INDICATION: chest wall pain w cough. COMPARISON: 04/28/2017 FINDINGS: Support devices: None. Heart: Within normal limits. Lungs/Pleura: There is mild scarring within the bases. IMPRESSION: 1. No acute findings. Signer Name: Jong Wren MD Signed: 09/29/2021 5:38 PM Workstation Name: [id number] Critical care attestation.: If time is entered above; I have spent that time in minutes in the direct care of this critically ill patient, excluding procedure time. ED Disposition Clinical Impression: Chest wall pain, Bronchitis Disposition: HOME / SELF CARE / HOMELESS Is pt being admited?: No Does the pt Need Aspirin: No Condition: Good Instructions: Chronic Bronchitis (ED), Costochondritis, Chronic Bronchitis, Adult Additional Instructions: As we discussed, patient likely has bronchitis, with superimposed costochondritis. Symptoms of bronchitis may last for a few days, weeks, or even months. Discontinue tobacco consumption, and smoking. Take the breathing medication as needed, and acetaminophen for pain as needed. Use the good Rx affordable prescription card to assist with affordable prescriptions. Recommend follow-up with your primary care doctor or mock up builder within the next 5 to 7 days for repeat checkup and evaluation. Patient was found to have a subtherap eutic INR/Coumadin level. As patient reported that she has a history of provoked DVT 7 years ago, and has not had a DVT since then, it may be reasonable to discontinue Coumadin/anticoagulation. Recommend very close follow-up with your outpatient primary care doctor or mock up builder to further discuss this. Recommend follow-up within the next 5 to 7 days. Please continue current outpatient medications otherwise. For the patient's convenience, local primary care or pulmonology have been liste d that she may follow-up with Referrals: BRAYDEN BUCHANAN MD [Staff Physician] - 3-5 Days DOTTY CELESTIN MD [Staff Physician] - 3-5 Days Forms: Work/School Release Form(ED)
--- NOTE | 2021-09-29 18:43 | XRay Report ---
CHEST PA AND LATERAL VIEWS INDICATION: chest wall pain w cough. COMPARISON: 04/28/2017 FINDINGS: Support devices: None. Heart: Within normal limits. Lungs/Pleura: There is mild scarring within the bases. IMPRESSION: 1. No acute findings. Signer Name: Jong Wren MD Signed: 09/29/2021 6:38 PM Workstation Name: [id number]
[2021-09-29 19:03] LABS: Hematocrit 41.1 % (30.3-42.9); Hemoglobin 13.1 gm/dl (10.1-14.3); Mean Corpuscular HGB Conc 32 % (30-34); Mean Corpuscular Volume 89 fl (79-97); Platelet Count 349 K/mm3 (140-440); Red Blood Count 4.63 M/mm3 (3.65-5.03); Red Cell Distribution Width 16.9 % (13.2-15.2)
[2021-09-29 19:09] LABS: INR 0.81 (0.87-1.13)
[2021-09-29 19:33] LABS: Blood Urea Nitrogen 15 mg/dL (7-17); Hemolysis Index 7
[2021-09-29 19:41] LABS: BUN/Creatinine Ratio 25
[2021-09-29 20:37] VITALS: BP 142/76
--- NOTE | 2021-10-01 14:18 | Electrocardiograph Report ---
[facility] Test Date: 2021-09-29 Test Time: 17:39:07 Pat Name: SERA BARNES Department: Room: Gender: F Research Executive: REENA : 1945 Requested By: JULIETTE JAMES Order Number: [id number] Reading MD: Suzanne Daigle Measurements Intervals [place] Rate: 90 P: 8 SD: 124 QRS: 44 QRSD: 82 T: 63 QT: 366 QTc: 448 Interpretive Statements Sinus rhythm No previous ECG available for comparison Electronically Signed On 10-01-2021 14:18:17 EDT by Suzanne Daigle
== END 2021-09-29 20:37 | disposition home or self-care (01) ==
LOC: ED 17:23
DX: R07.9 Chest pain, unspecified (principal); J40 Bronchitis, not specified as acute or chronic; Z88.6 Allergy status to analgesic agent; Z88.1 Allergy status to other antibiotic agents; Z88.8 Allergy status to other drugs, medicaments and biological substances; I10 Essential (primary) hypertension; E11.9 Type 2 diabetes mellitus without complications
CPT/HCPCS: 36415; 71046; 80048; 82550; 83735; 84484; 85027; 85379; 85610; 93005; 94640; 94644; 99284

== ENCOUNTER 2021-10-24 11:03 | Emergency (ER) | payer MEDICARE ==
[2021-10-24] MEDS ORDERED: traMADol 50 MG TAB PO ONE (11:33)
--- NOTE | 2021-10-24 12:30 | Cat Scan Report ---
CT head/brain wo con INDICATION: head injury. TECHNIQUE: All CT scans at this location are performed using CT dose reduction for ALARA by means of automated e xposure control. COMPARISON: None available. FINDINGS: There is no evidence of hemorrhage, hydrocephalus, brain edema, or mass effect/mass lesion. There is overall normal brain formation and brain volume for the patient's age. Ventricular and cisternal/sulc al size is normal for age. The included paranasal sinuses and mastoid air cells are clear. The orbits appear unremarkable. IMPRESSION: 1. No acute intracranial abnormality. Signer Name: Christiano Howard MD Signed: 10/24/2021 12:20 PM Workstation Name: [id number]
--- NOTE | 2021-10-24 12:31 | Cat Scan Report ---
CT MAXILLOFACIAL WITHOUT CONTRAST INDICATION: fall. Facial pain TECHNIQUE: All CT scans at this location are performed using CT dose reduction for ALARA by means of automated e xposure control. COMPARISON: None available. FINDINGS: FACIAL BONES: No fracture or other significant abnormality. PARANASAL SINUSES: No significant abnormality. ORBITS: No significant abnormality. VISUALIZED INTRACRANIAL STRUCTURES: No significant abnormality. ADDITIONAL FINDINGS: None. IMPRESSION: 1. No acute maxillofacial fracture or subluxation. Signer Name: Christiano Howard MD Signed: 10/24/2021 12:23 PM Workstation Name: [id number]
--- NOTE | 2021-10-24 12:39 | Cat Scan Report ---
CT ABDOMEN AND PELVIS WITHOUT CONTRAST INDICATION: fall, abdominal pain. TECHNIQUE: Axial CT images were obtained through the abdomen and pelvis without IV contrast. All CT scans at [facility] location are performed using CT dose reduction for ALARA by means of automated exposure control. COMPARISON: None available. FINDINGS: LOWER CHEST: No significant abnormality. Linear bibasilar scarring/atelectasis. LIVER: No significant abnormality. GALLBLADDER: Surgically absent. BILE DUCTS: Dilated measuring 1.4 cm but tapering distally. No common bile duct stone PANCREAS: No significant abnormality. SPLEEN: No significant abnormality. ADRENALS: No significant abnormality. RIGHT KIDNEY and URETER: No significant abnormality. LEFT KIDNEY and URETER: No significant abnormality. STOMACH and SMALL BOWEL: No significant abnormality. COLON: No significant abnormality. APPENDIX: Normal PERITONEUM: No free fluid. No free air. No fluid collection. LYMPH NODES: No significant adenopathy. AORTA and ARTERIES: Moderate vascular calcifications nonaneurysmal aorta. IVC and VEINS: Left common and external iliac venous stent with large venous collaterals within the l ower pelvis. URINARY BLADDER: No significant abnormality. REPRODUCTIVE ORGANS: No significant abnormality. ADDITIONAL FINDINGS: None. SKELETAL SYSTEM: Spinal fusion hardware extending from L4 into sacrum and both iliac bones. IMPRESSION: 1. No significant abnormality. Line 2. Biliary ductal dilatation status post cholecystectomy. 3. Left iliac vein stent. Signer Name: Laron Mock MD Signed: 10/24/2021 12:34 PM Workstation Name: [id number]
--- NOTE | 2021-10-24 12:48 | Emergency Department Report ---
ED Fall HPI - General Chief Complaint: Pain General Stated Complaint: LEFT SIDE/NOSE PAIN Time Seen by Provider: 10/24/21 11:29 Source: patient Mode of arrival: Ambulatory - History of Present Illness Initial Comments: 76-year-old black female with a past medical history of hypertension, diabetes, COPD, and DVT with stent and currently on OAC presents to the emergency department for evaluation of left lower quadrant and nose pain. She states that 3 days ago she fell while getting off the toilet and hit her face and has had pain to her nose and right area since then. 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 She denies fever, nausea, vomiting, chest pain, shortness of breath, vision changes, and dizziness. MD Complaint: fall -: Gradual, days(s) (3) Fall From: other (I will try to get off toilet) When Fall Occurred: 4-6 hours EXTERMINATOR Fall Witnessed: no Place Fall Occurred: home Loss of Consciousness: none Prolonged Down Time?: no Symptoms Prior to Fall: none Location: face Severity: severe Quality: aching Associated Symptoms: headache, abdominal pain. denies: neck pain, numbness, weakness, chest paint, shortness of breath, hematuria, unable to walk, lightheaded, vertigo, confusion - Related Data Home Medications Medication Instructions Recorded Confirmed Last Taken Insulin Glargine [Lantus VIAL] 15 unit SUB-Q QHS 12/09/15 05/02/17 2 Weeks Ago ~04/18/17 Previous Rx's Medication Instructions Recorded Last Taken Type Insulin Aspart (Nf) [NovoLOG 100 5 units SUB-Q TID #60 units 12/18/15 04/28/17 Rx UNITS/ML VIAL] Insulin Glargine [Lantus VIAL] 10 units SUB-Q QHS #30 units 12/18/15 1 Week Ago Rx ~04/25/17 Warfarin [Coumadin] 2.5 mg PO QDAY #30 tablet 12/18/15 04/28/17 Rx 11.5 mg Albuterol Mdi (or & Nicu Only) 2 puff IH QID PRN #1 can 05/10/17 Unknown Rx [ProAir HFA Inhaler] Arformoterol Nebu [Brovana Nebu] 15 mcg IH Q12HRT #60 ml 11/06/17 Unknown Rx Diabetic Supplies,Miscell [Enlite 1 each MC BID #1 miscell 05/10/17 Unknown Rx Serter] Prednisone [predniSONE 10 mg 10 mg PO .TAPER #1 tab.ds.pk 05/10/17 Unknown Rx (6-Day Pack, 21 Tabs)] amLODIPine 10 mg PO DAILY #30 tablet 05/10/17 Unknown Rx levoFLOXacin [Levaquin TAB] 500 mg PO Q24H #5 tablet 05/10/17 Unknown Rx Albuterol Sulfate [Proventil Hfa] 2 puff IH Q4HR PRN #1 hfa.aer.ad 11/13/19 Unknown Rx Benzonatate [Tessalon Perles] 100 mg PO Q8HR PRN #20 capsule 11/13/19 Unknown Rx predniSONE [Deltasone] 50 mg PO QDAY #5 tab 11/13/19 Unknown Rx Acetaminophen [Non-Aspirin Extra 500 mg PO Q6HR PRN #30 tablet 09/29/21 Unknown Rx Strength] Albuterol Sulfate [Albuterol 0.63% 0.63 mg IH Q4HR PRN #2 ml 09/29/21 Unknown Rx NEBS] Albuterol Sulfate [Proair 90 mcg IH Q4HR PRN #2 aer.pow.ba 09/29/21 Unknown Rx Respiclick] Ipratropium (Nf) [Atrovent] 2 puff IH Q6HR PRN #1 inha 09/29/21 Unknown Rx traMADoL [Ultram 50 MG tab] 25 - 50 mg PO Q6HR PRN #12 tablet 10/24/21 Unknown Rx Allergies Allergy/AdvReac Type Severity Reaction Status Date / Time aspirin Allergy Rash Verified 08/03/19 12:28 sumatriptan [From Imitrex] Allergy Rash Verified 08/03/19 12:28 vancomycin Allergy Rash Verified 08/03/19 12:28 ibuprofen [From Motrin] AdvReac Itching Verified 08/03/19 12:28 sumatriptan succinate AdvReac Rash Verified 08/03/19 12:28 [From Imitrex] zolpidem [From Ambien] AdvReac Unknown Verified 08/03/19 12:28 ED Review of Systems ROS: Stated complaint: LEFT SIDE/NOSE PAIN Other details as noted in HPI Comment: All other systems reviewed and negative Constitutional: denies: chills, fever Eyes: eye pain. denies: eye discharge, vision change ENT: denies: ear pain, throat pain, congestion Respiratory: denies: cough, shortness of breath, SOB with exertion, SOB at rest Cardiovascular: denies: chest pain, palpitations, dyspnea on exertion, orthopnea, edema, syncope, paroxysmal nocturnal dyspnea Gastrointestinal: abdominal pain (Left lower quad). denies: nausea, vomiting, diarrhea, hematemesis, melena, hematochezia Genitourinary: denies: urgency, dysuria, frequency, hematuria, discharge Musculoskeletal: denies: back pain Skin: denies: rash, lesions Neurological: headache. denies: weakness, numbness, paresthesias, confusion, abnormal gait, vertigo Hematological/Lymphatic: easy bleeding ED Past Medical Hx - Past Medical History Hx Hypertension: Yes Hx Heart Attack/AMI: No Hx Congestive Heart Failure: No Hx Diabetes: Yes Hx Deep Vein Thrombosis: No Hx Pulmonary Embolism: No Hx Liver Disease: No Hx Arthritis: Yes Hx Asthma: Yes Hx COPD: Yes Hx Tuberculosis: No Hx HIV: No - Surgical History Hx Coronary Stent: No Hx Pacemaker: No Hx Internal Defibrillator: No Hx Cholecystectomy: Yes Additional Surgical History: Hernia, shoulder, knee, stent placement. - Social History Smoking Status: Unknown if ever smoked Substance Use Type: None - Medications Home Medications: Home Medications Medication Instructions Recorded Confirmed Last Taken Type Insulin Glargine [Lantus VIAL] 15 unit SUB-Q QHS 12/09/15 05/02/17 2 Weeks Ago History ~04/18/17 Insulin Aspart (Nf) [NovoLOG 100 5 units SUB-Q TID #60 units 12/18/15 05/02/17 04/28/17 Rx UNITS/ML VIAL] Insulin Glargine [Lantus VIAL] 10 units SUB-Q QHS #30 units 12/18/15 05/02/17 1 Week Ago Rx ~04/25/17 Warfarin [Coumadin] 2.5 mg PO QDAY #30 tablet 12/18/15 05/02/17 04/28/17 Rx 11.5 mg Albuterol Mdi (or & Nicu Only) 2 puff IH QID PRN #1 can 05/10/17 Unknown Rx [ProAir HFA Inhaler] Arformoterol Nebu [Brovana Nebu] 15 mcg IH Q12HRT #60 ml 05/10/17 Unknown Rx Diabetic Supplies,Miscell [Enlite 1 each MC BID #1 miscell 05/10/17 Unknown Rx Serter] Prednisone [predniSONE 10 mg 10 mg PO .TAPER #1 tab.ds.pk 05/10/17 Unknown Rx (6-Day Pack, 21 Tabs)] amLODIPine 10 mg PO DAILY #30 tablet 05/10/17 Unknown Rx levoFLOXacin [Levaquin TAB] 500 mg PO Q24H #5 tablet 05/10/17 Unknown Rx Albuterol Sulfate [Proventil Hfa] 2 puff IH Q4HR PRN #1 hfa.aer.ad 11/13/19 Unknown Rx Benzonatate [Tessalon Perles] 100 mg PO Q8HR PRN #20 capsule 11/13/19 Unknown Rx predniSONE [Deltasone] 50 mg PO QDAY #5 tab 11/13/19 Unknown Rx Acetaminophen [Non-Aspirin Extra 500 mg PO Q6HR PRN #30 tablet 09/29/21 Unknown Rx Strength] Albuterol Sulfate [Albuterol 0.63% 0.63 mg IH Q4HR PRN #2 ml 09/29/21 Unknown Rx NEBS] Albuterol Sulfate [Proair 90 mcg IH Q4HR PRN #2 aer.pow.ba 09/29/21 Unknown Rx Respiclick] Ipratropium (Nf) [Atrovent] 2 puff IH Q6HR PRN #1 inha 09/29/21 Unknown Rx traMADoL [Ultram 50 MG tab] 25 - 50 mg PO Q6HR PRN #12 tablet 10/24/21 Unknown Rx ED Physical Exam - General Limitations: No Limitations General appearance: alert, in no apparent distress - Head Head exam: Absent: atraumatic, normocephalic - Expanded Head Exam Expanded 1 - Tenderness - Eye Eye exam: Present: normal appearance, periorbital tenderness (Right side only). Absent: conjunctival injection, periorbital swelling - ENT ENT exam: Present: normal exam, TM's normal bilaterally - Neck Neck exam: Present: normal inspection, full ROM. Absent: tenderness, lymphadenopathy - Respiratory Respiratory exam: Present: normal lung sounds bilaterally. Absent: respiratory distress, wheezes, rales, rhonchi, stridor, chest wall tenderness - Cardiovascular Cardiovascular Exam: Present: regular rate, normal heart sounds - GI/Abdominal GI/Abdominal exam: Present: soft, tenderness (Left lower quad), normal bowel sounds. Absent: distended, guarding, rebound, rigid - Extremities Exam Extremities exam: Present: normal inspection, full ROM, normal capillary refill. Absent: pedal edema, joint swelling, calf tenderness - Back Exam Back exam: Present: normal inspection. Absent: CVA tenderness (R), CVA tenderness (L), paraspinal tenderness, vertebral tenderness - Neurological Exam Neurological exam: Present: alert, oriented X3, normal gait. Absent: motor sensory deficit, reflexes normal - Psychiatric Psychiatric exam: Present: normal affect, normal mood - Skin Skin exam: Present: warm, dry, intact, normal color ED Course Vital Signs 10/24/21 10/24/21 11:06 13:17 Temperature 98.5 F 97.7 F Pulse Rate 84 76 Respiratory 20 20 Rate Blood Pressure 142/68 Blood Pressure 124/78 [Right] O2 Sat by Pulse 97 99 Oximetry ED Medical Decision Making - Radiology Data Radiology results: report reviewed CT abdomen and pelvis: FINDINGS: LOWER CHEST: No significant abnormality. Linear bibasilar scarring/atelectasis. LIVER: No significant abnormality. GALLBLADDER: Surgically absent. BILE DUCTS: Dilated measuring 1.4 cm but tapering distally. No common bile duct stone PANCREAS: No significant abnormality. SPLEEN: No significant abnormality. ADRENALS: No significant abnormality. RIGHT KIDNEY and URETER: No significant abnormality. LEFT KIDNEY and URETER: No significant abnormality. STOMACH and SMALL BOWEL: No significant abnormality. COLON: No significant abnormality. APPENDIX: Normal PERITONEUM: No free fluid. No free air. No fluid collection. LYMPH NODES: No significant adenopathy. AORTA and ARTERIES: Moderate vascular calcifications nonaneurysmal aorta. IVC and VEINS: Left common and external iliac venous stent with large venous collaterals within the lower pelvis. URINARY BLADDER: No significant abnormality. REPRODUCTIVE ORGANS: No significant abnormality. ADDITIONAL FINDINGS: None. SKELETAL SYSTEM: Spinal fusion hardware extending from L4 into sacrum and both iliac bones. IMPRESSION: 1. No significant abnormality. Line 2. Biliary ductal dilatation status post cholecystectomy. 3. Left iliac vein stent. CT head: FINDINGS: There is no evidence of hemorrhage, hydrocephalus, brain edema, or mass effect/mass lesion. There is overall normal brain formation and brain volume for the patient's age. Ventricular and cisternal/sulcal size is normal for age. The included paranasal sinuses and mastoid air cells are clear. The orbits appear unremarkable. IMPRESSION: 1. No acute intracranial abnormality. CT facial bones: FINDINGS: FACIAL BONES: No fracture or other significant abnormality. PARANASAL SINUSES: No significant abnormality. ORBITS: No significant abnormality. VISUALIZED INTRACRANIAL STRUCTURES: No significant abnormality. ADDITIONAL FINDINGS: None. IMPRESSION: 1. No acute maxillofacial fracture or subluxation. - Medical Decision Making 76-year-old black female with a past medical history of hypertension, diabetes, COPD, and DVT with stent and currently on OAC presents to the emergency department for evaluation of left lower quadrant and nose pain. She states that 3 days ago she fell while getting off the toilet and hit her face and has had pain to her nose and right area since then. 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 She denies fever, nausea, vomiting, chest pain, shortness of breath, vision changes, and dizziness. CT head, facial bones and abdomen and pelvis without any gross abnormalities noted. Pain much improved after Ultram. Patient will be discharged home with prescription for Ultram to use as needed for pain and advised to take medication as prescribed and follow-up with primary care provider if worsening symptoms. She verbalized understanding of and agreement with plan of care. Critical care attestation.: If time is entered above; I have spent that time in minutes in the direct care of this critically ill patient, excluding procedure time. ED Disposition Clinical Impression: Nose pain Fall Qualifiers: Encounter type: initial encounter Qualified Code(s): W19.XXXA - Unspecified fall, initial encounter Abdominal pain Qualifiers: Abdominal location: left lower quadrant Qualified Code(s): R10.32 - Left lower quadrant pain Head injury Qualifiers: Encounter type: initial encounter Qualified Code(s): S09.90XA - Unspecified injury of head, initial encounter Disposition: HOME / SELF CARE / HOMELESS Is pt being admited?: No Does the pt Need Aspirin: No Condition: Stable Instructions: Abdominal Pain, Adult, [id number], Head Injury, Adult, [id number] Additional Instructions: Take medications as prescribed. Follow up with primary care provider for further evaluation and management. Return to Ed as needed. Prescriptions: traMADoL [Ultram 50 MG tab] 25 - 50 mg PO Q6HR PRN #12 tablet PRN Reason: Pain Referrals: PRIMARY CARE, [Primary Care Provider] - 3-5 Days Forms: Work/School Release Form(ED) Time of Disposition: 12:48
[2021-10-24 13:18] VITALS: BP 124/78
== END 2021-10-24 13:17 | disposition home or self-care (01) ==
LOC: ED 11:03
DX: S09.90XA Unspecified injury of head, initial encounter (principal); R10.32 Left lower quadrant pain; J34.89 Other specified disorders of nose and nasal sinuses; E11.9 Type 2 diabetes mellitus without complications; J44.9 Chronic obstructive pulmonary disease, unspecified; Z90.49 Acquired absence of other specified parts of digestive tract; Z88.6 Allergy status to analgesic agent; Z88.8 Allergy status to other drugs, medicaments and biological substances; Z88.1 Allergy status to other antibiotic agents; Z79.899 Other long term (current) drug therapy; Z79.4 Long term (current) use of insulin; W18.39XA Other fall on same level, initial encounter; Y93.89 Activity, other specified; Y92.89 Other specified places as the place of occurrence of the external cause; Y99.8 Other external cause status
CPT/HCPCS: 70450; 70486; 74176; 99283